=== PATIENT | male | born 1960 | race Caucasian/White ===

== ENCOUNTER 2016-07-17 15:01 | Inpatient (IN) | payer OTHER ==
[2016-07-17] VITALS (13 sets, daily range): BP systolic 66–98; BP diastolic 46–66
[~2016-07-17] VITALS: Ht 91.4 cm; Wt 55.8 kg
--- NOTE | ~2016-07-17 | S ---
[facility] [place] [address] SURGICAL PATH RPT PROCEDURE Name: VARSHA AUGUSTIN Room #: 436-P ADM IN M.R.#: [id number] Admission: 07/17/16 Date of : 62 Discharge: Report #: [id number] Path Case #: [id number] PATHOLOGY REPORT COLLECTION DATE: 07/18/2016 RECEIVED DATE: 07/18/2016 SUBMITTING PHYS: Dr. Marina Muniz OTHER PHYS: Dr. Ra Lara SPECIMEN(S) RECEIVED: A.Sacral tissue * * * * * * * * * * * * FINAL DIAGNOSIS: Subcutaneous soft tissue "sacral tissue": - Extensive necrosis with acute inflammation and with fat necrosis. (SHA:all; d/t: 07/22/2016) PATHOLOGIST: Konstantin Ohcoa M.D. REPORT ELECTRONICALLY SIGNED BY: Konstantin Ochoa M.D. DATE/TIME: 07/22/2016 14:23 * * * * * * * * * * * * GROSS PATHOLOGY: The specimen is received in formalin, labeled "Varsha Augustin and sacral tissue." Received is a 7.4 x 5.5 x 1.3 cm aggregate of blood-tinged, vargas-brown, and necrotic appearing soft tissue with overlying skin. The specimen is serially sectioned and representatively submitted in cassette A1. (TTL; 07/18/2016) CLINICAL HISTORY: Sacral wound INITIAL CPT CODE(S): A; 01601 Professional services performed by [facility] at [facility] [address] [place] [address] Technical services performed by [facility] at [address] [place] [address], [address] [address]. [facility] [address] [place] [address] SURGICAL PATH RPT PROCEDURE Name: VARSHA AUGUSTIN Room #: 436-P ADM IN M.R.#: [id number] Admission: 07/17/16 Date of : 62 Discharge: Report #: [id number] Path Case #: [id number] [facility] [address] [place] [id number] PHONE: [phone] DIRECTOR: Cristopher Reese M.D. * * * END OF REPORT * * *
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
--- NOTE | ~2016-07-17 | HC ---
[facility] [address] [address] CONSULTATION Name: VARSHA AUGUSTIN Room #: 251-P [facility] IN .R.#: [id number] Admission: 07/17/16 Attend Phys: Ra Coppola MD Discharge: Date of : 62 Report #: [id number] THIS REPORT FOR: //name// CC: Rudy Coppola DATE OF SERVICE: 07/17/2016 REFERRING PROVIDER: Jc Douglas M.D. REASON FOR CONSULTATION: Sacral decubitus wound with sepsis. HISTORY OF PRESENT ILLNESS: The patient is a 55-year-old male who is known to me as he underwent a debridement of a large stage IV sacral gluteal wound in mid May. The patient does have a history of hemipelvectomy and has been in and out of acute care and long-term acute care facilities for wound care since that time. Most recently, at the beginning of May, the patient was admitted to [facility] for sepsis secondary to his large stage IV sacral decubitus wound, which ultimately improved with repeat serial debridements. The patient discharged home a couple of weeks ago and while at home, has been using [id number]-[id number] honey on his wounds because he heard that that could be beneficial to wound healing. In addition, the patient continues tobacco use and refuses repositioning due to noncompliance. Nonetheless, the patient has been admitted to the Intensive Care Unit with findings concerning for sepsis as he is currently on multiple pressor agents for blood pressure management. As the patient does have recurrent necrosis to his wound, I have been asked to evaluate for repeat debridement. The patient did receive a CT scan of the abdomen and pelvis, which showed findings of pelvic edema concerning for phlegmonous change in addition to chronic osteomyelitis. The patient is awake, alert and conversive at this time, however. PAST MEDICAL HISTORY: Paraplegia, bilateral hemipelvectomy, bipolar disorder, GERD, hypertension, osteoarthritis and chronic osteomyelitis. MEDICATIONS: Are numerous and consist of albuterol, ipratropium, dobutamine, epinephrine, folic acid, [place], insulin, lactobacillus, MS Contin, norepinephrine, Protonix, vancomycin, Zofran and Zosyn. ALLERGIES: To PETROLEUM JELLY. FAMILY HISTORY: Reviewed and noncontributory. SOCIAL HISTORY: Positive for tobacco and occasional alcohol. He states negative for illicit drugs, although his drug screen came back positive for opiates and marijuana. [facility] [address] [place] [address] CONSULTATION Name: VARSHA AUGUSTIN Room #: 251-P [facility] IN .R.#: [id number] Admission: 07/17/16 Attend Phys: Ra Coppola MD Discharge: Date of : 62 Report #: [id number] REVIEW OF SYSTEMS: GENERAL: The patient denies nocturnal fevers or chills. HEENT: No change in vision, change in hearing. NECK: No swelling or difficulty swallowing. HEART: No chest pain, palpitations. LUNGS: No cough or shortness of breath. ABDOMEN: No nausea, no vomiting. GENITOURINARY: No dysuria or hematuria. ENDOCRINE: No polyuria, polydipsia. HEMATOLOGIC: No history of bleeding or easy bruising. EXTREMITIES: No issue with his upper extremities and he has bilateral hemipelvectomy. NEUROLOGIC: No history of syncope or near syncopal episodes. SKIN AND INTEGUMENT: History of a sacral gluteal decubitus wounds that are longstanding. PSYCHIATRIC: No history of anxiety, but he does have a history of bipolar disorder. PHYSICAL EXAMINATION: VITAL SIGNS: Temperature 96.7, pulse 106, respirations 14, blood pressure 93/62 on pressors. GENERAL: Alert, in no acute distress. HEENT: Normocephalic, atraumatic. Pupils equal, round, reactive to light. NECK: Supple without lymphadenopathy. Trachea midline. HEART: Tachycardic, but regular rhythm. RESPIRATORY: Lungs clear to auscultation bilaterally. ABDOMEN: Soft, nontender, nondistended. His colostomy is pink, patent and functional. The suprapubic catheter is in place and functional. GENITOURINARY: Normal external male genitalia. EXTREMITIES: No clubbing, cyanosis or edema in the upper extremities. He has no lower extremities. NEUROLOGIC: Cranial nerves 2-12 are grossly intact. PSYCHIATRIC: Normal mood and affect. SKIN AND INTEGUMENT: Entire bilateral gluteal, sacral and ischial regions showed overt necrotic tissue with slough and palpable bone throughout a bed of granulation tissue. LABORATORY AND X-RAY DATA: CBC showed a white blood cell count of 16.1 thousand, hemoglobin 8.2, platelets 539,000. He has a left shift of 78% neutrophils. Creatinine 0.8, albumin 1.0. Lactate 1.6. Urinalysis shows pyuria consistent with chronic suprapubic catheter. Chest x-ray shows no acute cardiopulmonary process. CT scan of the abdomen and pelvis as per HPI shows chronic osteomyelitis as well as phlegmonous change nearing the left side of the pelvis. INR is 1.5. ASSESSMENT AND PLAN: A 55-year-old male with a longstanding history [address] [place] [address] CONSULTATION Name: VARSHA AUGUSTIN Room #: 251-P [facility] IN .R.#: [id number] Admission: 07/17/16 Attend Phys: Ra Coppola MD Discharge: Date of : 62 Report #: [id number] of severe stage IV sacral bilateral gluteal and ischial decubitus wounds with necrosis. The patient is currently septic and on pressors and antibiotics; however is awake and mentating without issue. After evaluating the patient's wound while there is necrosis, I do not suspect that this is the source of his bacteremia as the gram stain on his blood culture has returned positive gram negative rods. The patient may be developing a pelvic abscess likely due to his chronic osteomyelitis and translocation of bacteria into the pelvic soft tissues, but in addition, he has an indwelling port that may be contributing to line sepsis. Nonetheless, at this time, the patient is being managed with antibiotic therapy per the direction of Dr. Douglas with the Infectious Disease Service and is being supported by the critical care service as well. We will proceed to the operating room for repeat debridement of his wounds at this time and will likely repeat a CT scan in 3 days' time to see if the phlegmonous change in the pelvis has coalesced into any drainable fluid collection for Interventional Radiology to assist. I sincerely appreciate this consult. I will follow along closely and leave any further recommendations in the patient's chart as appropriate. <ELECTRONICALLY SIGNED> By: Marina Muniz MD, FACS 07/19/16 1714 [id number] [id number] Marina Muniz MD, FACS /nt
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
--- NOTE | ~2016-07-17 | S ---
[facility] [place] [address] SURGICAL PATH RPT PROCEDURE Name: VARSHA AUGUSTIN Room #: 436-P ADM IN M.R.#: [id number] Admission: 07/17/16 Date of : 62 Discharge: Report #: [id number] Path Case #: [id number] PATHOLOGY REPORT COLLECTION DATE: 07/23/2016 RECEIVED DATE: 07/24/2016 SUBMITTING PHYS: Dr. Marina Muniz OTHER PHYS: Dr. Rudy Coppola SPECIMEN(S) RECEIVED: A.Sacral tissue * * * * * * * * * * * * FINAL DIAGNOSIS: Sacral tissue, debridement: - Marked acute inflammation associated with abscess formation extending into underlying subcutaneous tissue consistent with wound. (IUV:all; d/t: 07/25/2016) PATHOLOGIST: Melany Hardin M.D. REPORT ELECTRONICALLY SIGNED BY: Melany Hardin M.D. DATE/TIME: 07/25/2016 16:42 * * * * * * * * * * * * GROSS PATHOLOGY: The specimen is received in formalin, labeled "Varsha Augustin and sacral tissue." Received is a 10.3 x 4.7 x 1.3 cm aggregate of vargas-brown, rubbery, irregular, and necrotic-appearing soft tissue. The specimen is serially sectioned and representatively submitted in cassette A1. (TTL; 07/24/2016) CLINICAL HISTORY: Sacral wound INITIAL CPT CODE(S): A; 40709 Professional services performed by [facility] at [facility] [address] [place] [address] Technical services performed by [facility] at [address] [place] [address]. [facility] [address] [place] [address] SURGICAL PATH RPT PROCEDURE Name: VARSHA AUGUSTIN Room #: 436-P ADM IN M.R.#: [id number] Admission: 07/17/16 Date of : 62 Discharge: Report #: [id number] Path Case #: [id number] [address] PHONE: [phone] DIRECTOR: Cristopher Reese M.D. * * * END OF REPORT * * *
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
[~2016-07-17 15:01] MED LIST: ALUM-MAG HYDRO360 ML PO; BOOST PLUS237 ML PO; CALCIUM 500 +1 EAC5 PO; FOLIC ACID1 MG PO; HYDROCODONE-AP1 EAC6 PO; MELATONIN3 M1 PO; MEROPENEM-500 MG/50 IVPB; PRENATAL VITAM1 EAC2 PO; PROBIOTIC1 EAC1 PO; PROTONIX40 M1 PO; TYLENOL325 MG PO; VANCOMYCIN750 MG/150 IV; [UNRECOGNIZED DRUG - OTHER] PO
[2016-07-17] MEDS ORDERED: MS CONTIN15 MG PO (15:41)
[2016-07-17 16:06] LABS: ABSOLUTE NEUTROPHILS 12.6 thou/uL (1.4-8.2); BASOPHILS 0.5 % (0.0-2.0); EOSINOPHILS 0.8 % (0.0-3.0); HEMATOCRIT 25.4 % (42.0-52.0); HEMOGLOBIN 8.2 gm/dL (14.0-18.0); LYMPHOCYTES 11.1 % (24.0-44.0); MCHC 32.1 % (28.0-37.0); MCV 74.7 fL (80.0-100.0); MONOCYTES 9.4 % (1.0-8.0); PLATELET COUNT 539 thou/uL (150-400); POLYS 78.2 % (36.0-66.0); RDW 18.4 % (10.5-14.5); WBC 16.1 thou/uL (4.0-11.0)
[2016-07-17 16:08] LABS: MANUAL DIFF NO
[2016-07-17 16:15] LABS: CALCIUM 8.3 mg/dL (8.5-10.1); CREATININE 0.8 mg/dL (0.6-1.3); POTASSIUM 4.2 mmol/L (3.5-5.1)
[2016-07-17 17:37] LABS: URINE BILIRUBIN NEGATIVE (Negative); URINE BLOOD TRACE (Negative); URINE COLOR YELLOW; URINE GLUCOSE-RANDOM* NEGATIVE (Negative); URINE KETONES NEGATIVE (Negative); URINE LEUKOCYTES-REFLEX 2+ (Negative); URINE PROTEIN (DIPSTICK) TRACE (Negative); URINE SPECIFIC GRAVITY 1.025 (1.003-1.035); URINE UROBILINOGEN 0.2 E.U./dl (0.2-1.0)
[2016-07-17 17:48] LABS: CASTS None Seen /LPF (None Seen); CRYSTALS None Seen /LPF (None Seen); SQUAMOUS 0-3 Few /LPF (0-3); URINE RBC None Seen /HPF (0-2); URINE WBC-REFLEX >25 Many /HPF (0-5); YEAST-REFLEX Present (None Seen)
[2016-07-17 20:08] LABS: ABG SAMPLE TYPE ARTERIAL; BE(vivo) -3.1 mmol/L (-2 to +3); LACTATE 1.77 mmol/L (0.5-2.0); O2(CT) 12.6 mL/dL (15.0-23.0); O2Hb 95.7 % (92.0-98.0); PCO2 28.8 mmHg (35.0-45.0); PO2 87.9 mmHg (80.0-100.0); sO2 97.2 % (92.0-98.0); tCO2 20.9 mmol/L (24.0-30.0)
[2016-07-17 20:09] LABS: ABG COMMENT ROOM AIR; STICK SITE R.RADIAL
[2016-07-17 20:11] LABS: ABG COMMENT VBG #1; ABG SAMPLE TYPE VENOUS; BE(vivo) -2.8 mmol/L (-2 to +3); HCO3 21.7 mmol/L (22.0-26.0); LACTATE 1.74 mmol/L (0.5-2.0); O2(CT) 6.7 mL/dL (15.0-23.0); O2Hb VENOUS 53.4 (65.0-85.0); PCO2 VENOUS 36.4 mmHg (41.0-51.0); PO2 VENOUS 30.7 mmHg (35.0-45.0); STICK SITE LINE; sO2 VENOUS 58.8 % (65.0-85.0); tCO2 22.9 mmol/L (24.0-30.0)
[2016-07-17 20:54] LABS: CALCIUM 7.5 mg/dL (8.5-10.1); CREATININE 0.9 mg/dL (0.6-1.3); POTASSIUM 3.8 mmol/L (3.5-5.1)
[2016-07-17 20:58] LABS: APTT 30.8 Seconds (24.5-32.8); INR 1.5; PROTIME 15.8 Seconds (9.3-11.4)
[2016-07-17 21:01] LABS: TOTAL BILIRUBIN 0.2 mg/dL (<0.1-1.0)
[2016-07-17 21:03] LABS: FIBRINOGEN 844.2 mg/dL (210-360)
[2016-07-17 21:26] LABS: ABG SAMPLE TYPE VENOUS; BE(vivo) -4.9 mmol/L (-2 to +3); HCO3 19.7 mmol/L (22.0-26.0); LACTATE 1.76 mmol/L (0.5-2.0); O2(CT) 6.1 mL/dL (15.0-23.0); PCO2 VENOUS 34.3 mmHg (41.0-51.0); sO2 VENOUS 58.6 % (65.0-85.0); tCO2 20.7 mmol/L (24.0-30.0)
[2016-07-17 21:27] LABS: ABG COMMENT VBG #2; O2Hb VENOUS 49.9 (65.0-85.0); STICK SITE LINE
[2016-07-17 22:31] LABS: ABG SAMPLE TYPE VENOUS; BE(vivo) -3.6 mmol/L (-2 to +3); LACTATE 1.87 mmol/L (0.5-2.0); O2(CT) 6.6 mL/dL (15.0-23.0); O2Hb VENOUS 57.6 (65.0-85.0); PCO2 VENOUS 36.2 mmHg (41.0-51.0); PO2 VENOUS 32.8 mmHg (35.0-45.0); sO2 VENOUS 62.5 % (65.0-85.0); tCO2 22.1 mmol/L (24.0-30.0)
[2016-07-17 22:32] LABS: ABG COMMENT VBG #3; STICK SITE LINE
[2016-07-17 23:47] LABS: ABG SAMPLE TYPE VENOUS; BE(vivo) -5.2 mmol/L (-2 to +3); HCO3 19.7 mmol/L (22.0-26.0); LACTATE 2.47 mmol/L (0.5-2.0); O2(CT) 7.5 mL/dL (15.0-23.0); O2Hb VENOUS 60.9 (65.0-85.0); PCO2 VENOUS 35.9 mmHg (41.0-51.0); PO2 VENOUS 36.2 mmHg (35.0-45.0); sO2 VENOUS 67.3 % (65.0-85.0); tCO2 20.8 mmol/L (24.0-30.0)
[2016-07-17 23:48] LABS: ABG COMMENT VBG #4; STICK SITE LINE
[2016-07-18] VITALS (99 sets, daily range): BP systolic 66–147; BP diastolic 21–89
[2016-07-18 01:08] LABS: ABG COMMENT VBG #5; ABG SAMPLE TYPE VENOUS; BE(vivo) -4.5 mmol/L (-2 to +3); HCO3 20.1 mmol/L (22.0-26.0); LACTATE 1.42 mmol/L (0.5-2.0); O2(CT) 7.2 mL/dL (15.0-23.0); O2Hb VENOUS 58.1 (65.0-85.0); PCO2 VENOUS 35.1 mmHg (41.0-51.0); PO2 VENOUS 33.8 mmHg (35.0-45.0); STICK SITE LINE; sO2 VENOUS 64.1 % (65.0-85.0); tCO2 21.2 mmol/L (24.0-30.0)
[2016-07-18 01:49] LABS: CALCIUM 7.6 mg/dL (8.5-10.1); CREATININE 0.9 mg/dL (0.6-1.3); POTASSIUM 4.2 mmol/L (3.5-5.1)
[2016-07-18 01:57] LABS: APTT 28.4 Seconds (24.5-32.8); INR 1.4
[2016-07-18 02:27] LABS: ABG SAMPLE TYPE VENOUS; BE(vivo) -4.5 mmol/L (-2 to +3); HCO3 20.3 mmol/L (22.0-26.0); LACTATE 1.42 mmol/L (0.5-2.0); O2(CT) 8.6 mL/dL (15.0-23.0); O2Hb VENOUS 68.3 (65.0-85.0); PCO2 VENOUS 36.4 mmHg (41.0-51.0); PO2 VENOUS 38.9 mmHg (35.0-45.0); STICK SITE LINE; sO2 VENOUS 72.1 % (65.0-85.0); tCO2 21.5 mmol/L (24.0-30.0)
[2016-07-18 02:28] LABS: ABG COMMENT VBG#6
[2016-07-18 04:53] LABS: ABSOLUTE NEUTROPHILS 11.5 thou/uL (1.4-8.2); BASOPHILS 0.4 % (0.0-2.0); EOSINOPHILS 0.4 % (0.0-3.0); HEMATOCRIT 26.7 % (42.0-52.0); HEMOGLOBIN 8.5 gm/dL (14.0-18.0); LYMPHOCYTES 7.5 % (24.0-44.0); MCH 24.8 pg (26.0-34.0); MCV 77.6 fL (80.0-100.0); POLYS 84.7 % (36.0-66.0); RBC 3.44 mil/uL (4.50-6.00); RDW 18.1 % (10.5-14.5); WBC 13.6 thou/uL (4.0-11.0)
[2016-07-18 04:55] LABS: CALCIUM 8.2 mg/dL (8.5-10.1); CREATININE 0.9 mg/dL (0.6-1.3); MAGNESIUM 1.8 mg/dL (1.8-2.4); POTASSIUM 3.9 mmol/L (3.5-5.1)
[2016-07-18 04:55] LABS: HEMATOCRIT 24.3 % (42.0-52.0); HEMOGLOBIN 7.7 gm/dL (14.0-18.0); MCH 25.1 pg (26.0-34.0); MCV 78.9 fL (80.0-100.0); RBC 3.08 mil/uL (4.50-6.00); WBC 9.8 thou/uL (4.0-11.0)
[2016-07-18 04:56] LABS: MCHC 31.8 % (28.0-37.0); RDW 18.1 % (10.5-14.5)
[2016-07-18 04:59] LABS: PLATELET COUNT 493 thou/uL (150-400)
[2016-07-18 05:00] LABS: MANUAL DIFF NO
[2016-07-18 05:14] LABS: AMP/METHAMP Negative (Negative); BARBITURATES Negative (Negative); BENZODIAZEPINES Negative (Negative); COCAINE Negative (Negative); METHADONE Negative (Negative); OPIATES POSITIVE (Negative); PCP Negative (Negative); THC POSITIVE (Negative)
[2016-07-18 07:10] LABS: TSH 1.07 uIU/mL (0.450-4.500)
[2016-07-18 09:34] LABS: ABG SAMPLE TYPE VENOUS; BE(vivo) -3.4 mmol/L (-2 to +3); HCO3 21.1 mmol/L (22.0-26.0); LACTATE 2.23 mmol/L (0.5-2.0); O2Hb VENOUS 64.3 (65.0-85.0); PCO2 VENOUS 35.7 mmHg (41.0-51.0); PO2 VENOUS 36.1 mmHg (35.0-45.0); tCO2 22.2 mmol/L (24.0-30.0)
[2016-07-18 09:35] LABS: STICK SITE LINE
[2016-07-18 12:21] LABS: HEMATOCRIT 27.8 % (42.0-52.0); HEMOGLOBIN 8.9 gm/dL (14.0-18.0); MCH 25.1 pg (26.0-34.0); MCV 78.5 fL (80.0-100.0); RBC 3.54 mil/uL (4.50-6.00); WBC 9.1 thou/uL (4.0-11.0)
[2016-07-18 12:24] LABS: CALCIUM 8.5 mg/dL (8.5-10.1); CREATININE 0.9 mg/dL (0.6-1.3); POTASSIUM 3.9 mmol/L (3.5-5.1)
[2016-07-18 12:38] LABS: APTT 30.8 Seconds (24.5-32.8); INR 1.4; PROTIME 14.1 Seconds (9.3-11.4)
[2016-07-18 12:43] LABS: FIBRINOGEN 844.2 mg/dL (210-360)
[2016-07-18 13:11] LABS: % SATURATION 9 % (15-55); IRON 10 ug/dL (38-169); TIBC 110 ug/dL (250-450); UIBC 100 ug/dL (111-343)
[2016-07-18 17:00] LABS: ABG SAMPLE TYPE VENOUS; BE(vivo) -4.6 mmol/L (-2 to +3); HCO3 18.7 mmol/L (22.0-26.0); LACTATE 1.13 mmol/L (0.5-2.0); O2(CT) 8.5 mL/dL (15.0-23.0); O2Hb VENOUS 69.2 (65.0-85.0); PCO2 VENOUS 27.9 mmHg (41.0-51.0); PO2 VENOUS 35.7 mmHg (35.0-45.0); sO2 VENOUS 72.1 % (65.0-85.0); tCO2 19.5 mmol/L (24.0-30.0)
[2016-07-19] VITALS (94 sets, daily range): BP systolic 86–158; BP diastolic 45–110
[2016-07-19 06:32] LABS: CALCIUM 8.4 mg/dL (8.5-10.1); CREATININE 0.7 mg/dL (0.6-1.3); MAGNESIUM 1.7 mg/dL (1.8-2.4); POTASSIUM 3.7 mmol/L (3.5-5.1); TOTAL BILIRUBIN 0.2 mg/dL (<0.1-1.0); TOTAL PROTEIN 6.3 g/dL (6.4-8.2)
[2016-07-19 07:11] LABS: ABSOLUTE NEUTROPHILS 6.9 thou/uL (1.4-8.2); EOSINOPHILS 3.1 % (0.0-3.0); HEMATOCRIT 25.7 % (42.0-52.0); HEMOGLOBIN 8.5 gm/dL (14.0-18.0); LYMPHOCYTES 11.4 % (24.0-44.0); MCH 25.3 pg (26.0-34.0); MCHC 32.9 % (28.0-37.0); MCV 76.7 fL (80.0-100.0); MONOCYTES 7.5 % (1.0-8.0); PLATELET COUNT 490 thou/uL (150-400); RBC 3.35 mil/uL (4.50-6.00); RDW 18.6 % (10.5-14.5)
[2016-07-19 07:27] LABS: MANUAL DIFF NO
[2016-07-20] VITALS (31 sets, daily range): BP systolic 85–142; BP diastolic 53–92
[2016-07-20 04:24] LABS: ABSOLUTE NEUTROPHILS 4.9 thou/uL (1.4-8.2); BASOPHILS 0.8 % (0.0-2.0); EOSINOPHILS 4.1 % (0.0-3.0); HEMATOCRIT 25.8 % (42.0-52.0); HEMOGLOBIN 8.3 gm/dL (14.0-18.0); LYMPHOCYTES 17.7 % (24.0-44.0); MCHC 32.3 % (28.0-37.0); MCV 77.3 fL (80.0-100.0); MONOCYTES 6.4 % (1.0-8.0); PLATELET COUNT 469 thou/uL (150-400); RBC 3.34 mil/uL (4.50-6.00); RDW 18.9 % (10.5-14.5); WBC 6.9 thou/uL (4.0-11.0)
[2016-07-20 05:04] LABS: MANUAL DIFF NO
[2016-07-20 06:14] LABS: CALCIUM 7.9 mg/dL (8.5-10.1); CREATININE 0.8 mg/dL (0.6-1.3); POTASSIUM 3.6 mmol/L (3.5-5.1)
[2016-07-21] VITALS (16 sets, daily range): BP systolic 93–135; BP diastolic 51–91
[2016-07-22 05:30] VITALS: BP 101/60
[2016-07-22 08:00] VITALS: BP 100/68
[2016-07-22 12:00] VITALS: BP 105/65
[2016-07-22 16:00] VITALS: BP 93/55
[2016-07-22 21:10] VITALS: BP 96/65
[2016-07-23 05:20] VITALS: BP 111/66
[2016-07-23 06:06] LABS: HEMATOCRIT 26.8 % (42.0-52.0); HEMOGLOBIN 8.4 gm/dL (14.0-18.0); MCH 24.4 pg (26.0-34.0); MCHC 31.2 % (28.0-37.0); MCV 78.1 fL (80.0-100.0); RBC 3.42 mil/uL (4.50-6.00); RDW 19.1 % (10.5-14.5); WBC 9.7 thou/uL (4.0-11.0)
[2016-07-23 06:15] LABS: CALCIUM 8.4 mg/dL (8.5-10.1); CREATININE 0.9 mg/dL (0.6-1.3); POTASSIUM 4.1 mmol/L (3.5-5.1)
[2016-07-23 08:00] VITALS: BP 114/58
[2016-07-23 12:37] VITALS: BP 88/62
[2016-07-23 19:28] VITALS: BP 103/69
[2016-07-23 20:35] VITALS: BP 117/70
[2016-07-24 00:28] VITALS: BP 116/80
[2016-07-24 05:43] VITALS: BP 113/66
[2016-07-24 08:04] VITALS: BP 107/71
[2016-07-24 11:13] VITALS: BP 114/64
[2016-07-24 16:01] VITALS: BP 138/83
[2016-07-24 19:22] VITALS: BP 109/56
[2016-07-25 06:02] VITALS: BP 104/69
[2016-07-25 12:16] VITALS: BP 112/67
[2016-07-25 14:30] VITALS: BP 112/67
[2016-07-25 14:40] VITALS: BP 112/67
[2016-07-25] MEDS ORDERED: CEFDINIR300 MG PO (15:10)
[2016-07-25] MEDS ORDERED: BACTRIM DS TAB1 EACH PO (15:12)
[2016-07-25] MEDS ORDERED: FLAGYL500 MG PO (15:12)
== END 2016-07-25 17:36 | disposition home health service (06) | DRG 853 ==
LOC: ER 15:01 → EROBS 17:07 → ICU 17:07 → 4S 07-21 14:59
PROVIDERS: Internal Medicine; Internal Medicine Geriatric Medicine; Internal Medicine Pulmonary Disease; Physician Assistant; Surgery
DX: R65.20 Severe sepsis without septic shock (principal); L89.894 Pressure ulcer of other site, stage 4; L89.324 Pressure ulcer of left buttock, stage 4; L89.314 Pressure ulcer of right buttock, stage 4; L89.154 Pressure ulcer of sacral region, stage 4; G82.20 Paraplegia, unspecified; M86.9 Osteomyelitis, unspecified; E87.1 Hypo-osmolality and hyponatremia; E87.0 Hyperosmolality and hypernatremia; N39.0 Urinary tract infection, site not specified; K21.9 Gastro-esophageal reflux disease without esophagitis; D64.9 Anemia, unspecified; F31.9 Bipolar disorder, unspecified; M19.90 Unspecified osteoarthritis, unspecified site; D47.3 Essential (hemorrhagic) thrombocythemia; R73.9 Hyperglycemia, unspecified; G89.29 Other chronic pain; J44.9 Chronic obstructive pulmonary disease, unspecified; B96.20 Unspecified Escherichia coli [E. coli] as the cause of diseases classified elsewhere; Z98.890 Other specified postprocedural states; Z88.8 Allergy status to other drugs, medicaments and biological substances; Z93.3 Colostomy status; Z79.899 Other long term (current) drug therapy
CPT/HCPCS: 10078; 10100; 27000; 50010; 50101; 50386; 50403; 53353; 53354; 54109; 56524; 62110; 62900; 70005; 85076

== ENCOUNTER → 2016-08-01 | Outpatient (CLI) | payer OTHER ==
[~2016-08-01] MED LIST changes: +BACTRIM DS TAB1 EACH PO; +CEFDINIR300 MG PO; +FLAGYL500 MG PO; +MS CONTIN15 MG PO
== END ==
LOC: HYPER 07:59
DX: L89.324 Pressure ulcer of left buttock, stage 4 (principal); L89.314 Pressure ulcer of right buttock, stage 4; L89.154 Pressure ulcer of sacral region, stage 4; L89.143 Pressure ulcer of left lower back, stage 3; F31.9 Bipolar disorder, unspecified; K21.9 Gastro-esophageal reflux disease without esophagitis; I10 Essential (primary) hypertension; M86.8X9 Other osteomyelitis, unspecified sites; G82.20 Paraplegia, unspecified; F17.210 Nicotine dependence, cigarettes, uncomplicated

== ENCOUNTER → 2016-10-08 | Outpatient (CLI) | payer OTHER | LOC: HYPER 09-26 08:11 | DX: L89.324 Pressure ulcer of left buttock, stage 4 (principal); L89.314 Pressure ulcer of right buttock, stage 4; L89.154 Pressure ulcer of sacral region, stage 4; L89.143 Pressure ulcer of left lower back, stage 3; K21.9 Gastro-esophageal reflux disease without esophagitis; I10 Essential (primary) hypertension; M86.8X8 Other osteomyelitis, other site; G82.21 Paraplegia, complete; F17.210 Nicotine dependence, cigarettes, uncomplicated ==

== ENCOUNTER → 2016-12-03 | Outpatient (CLI) | payer OTHER | LOC: HYPER 07:14 | DX: L89.154 Pressure ulcer of sacral region, stage 4 (principal); L89.324 Pressure ulcer of left buttock, stage 4; L89.314 Pressure ulcer of right buttock, stage 4; L89.893 Pressure ulcer of other site, stage 3; K21.9 Gastro-esophageal reflux disease without esophagitis; I10 Essential (primary) hypertension; M86.9 Osteomyelitis, unspecified; G82.20 Paraplegia, unspecified; F17.200 Nicotine dependence, unspecified, uncomplicated; F31.9 Bipolar disorder, unspecified; Z89.612 Acquired absence of left leg above knee; Z89.611 Acquired absence of right leg above knee ==

== ENCOUNTER 2017-01-13 13:00 | Inpatient (IN) | payer OTHER ==
[~2017-01-13] VITALS: Ht 91.4 cm; Wt 52.2 kg
--- NOTE | ~2017-01-13 | S ---
[facility] [place] [address] SURGICAL PATH RPT PROCEDURE Name: VARSHA AUGUSTIN Room #: 419-P DIS IN M.R.#: [id number] Admission: 01/13/17 Date of : 62 Discharge: 01/17/17 Report #: [id number] Path Case #: [id number] PATHOLOGY REPORT COLLECTION DATE: 01/15/2017 RECEIVED DATE: 01/15/2017 SUBMITTING PHYS: Dr. Pam Forrester OTHER PHYS: Dr. Ra Lara SPECIMEN(S) RECEIVED: A.Bx of duodenum B.Gastric * * * * * * * * * * * * FINAL DIAGNOSIS: A. Small bowel, duodenum, endoscopic biopsy: - No diagnostic abnormalities present. B. Gastric mucosa, gastric, endoscopic biopsy: - Mild reactive gastropathy with focal chronic gastritis. - Negative for intestinal metaplasia or atrophy. - Negative for Helicobacter pylori. COMMENT: Helicobacter pylori immunohistochemical stain performed on block B1 negative. (IUV:mml; d/t: 01/19/2017) PATHOLOGIST: Melany Hardin M.D. REPORT ELECTRONICALLY SIGNED BY: Melany Hardin M.D. DATE/TIME: 01/19/2017 16:02 * * * * * * * * * * * * GROSS PATHOLOGY: A. Received in formalin labeled "Varsha Augustin, BX of duodenum," are 2 segments of vargas soft tissue measuring 0.8 x 0.2 x 0.2 cm in aggregate dimensions and ranging from 0.3 to 0.5 cm in maximum dimension. The specimen is submitted entirely in cassette A1. B. Received in formalin labeled "Varsha Augustin, gastric BX," is a segment of vargas soft tissue measuring 0.5 x 0.3 x 0.2 cm in maximum dimension. The specimen is submitted entirely in cassette B1. (PANCHITO; 01/16/2017) [address] [address] SURGICAL PATH RPT PROCEDURE Name: VARSHA AUGUSTIN Room #: 419-P DIS IN M.R.#: [id number] Admission: 01/13/17 Date of : 62 Discharge: 01/17/17 Report #: [id number] Path Case #: [id number] CLINICAL HISTORY: Anemia INITIAL CPT CODE(S): A; 78517 B; 16110, 44115 Professional services performed by [facility] at [address], [place] [address] Technical services performed by [facility] at [address] [place] [address], [facility] [address] [place] [address]. [facility] [address] [place] [address] PHONE: [phone] DIRECTOR: Cristopher Reese M.D. * * * END OF REPORT * * *
--- NOTE | ~2017-01-13 | EKG ---
[address] [employer] [place] [address] ELECTROCARDIOGRAM REPORT Name: VARSHA AUGUSTIN Room #: 419-P ADM IN M.R.#: [id number] Admission: 01/13/17 Attend Phys: Ra Coppola MD Discharge: Date of : 62 Report #: [id number] THIS REPORT FOR: //name// [facility] Test Date: 2017-01-14 Test Time: 12:30:19 Pat Name: VARSHA AUGUSTIN Department: Room: 419 P Gender: M Controlled Area Checker: Sunil NORIEGA : 1960 Requested By: Ra Coppola Order Number: [id number] MD: Clay Walton Measurements Intervals [place] Rate: 101 P: 76 IA: 153 QRS: 39 QRSD: 99 T: 59 QT: 398 QTc: 516 Interpretive Statements Sinus tachycardia Low voltage, precordial leads Nonspecific ST and T wave abnormality Prolonged QT interval Compared to ECG 05/05/1998 19:55:00 Low QRS voltage now present T-wave abnormality now present Prolonged QT interval now present Electronically Signed On 01-15-2017 8:21:14 CDT by Clay Walton [email or web address] <ELECTRONICALLY SIGNED> By: Clay Walton MD, [facility] 01/15/17 0821 1230 1230 Clay Walton MD, [facility] /EPI
[2017-01-13 13:00] VITALS: BP 107/61
[2017-01-13 14:56] LABS: ABSOLUTE NEUTROPHILS 9.1 thou/uL (1.4-8.2); BASOPHILS 1.5 % (0.0-2.0); EOSINOPHILS 1.7 % (0.0-3.0); HEMATOCRIT 24.5 % (42.0-52.0); HEMOGLOBIN 7.6 gm/dL (14.0-18.0); LYMPHOCYTES 14.5 % (24.0-44.0); MCHC 31.1 g/dL (28.0-37.0); MCV 70.8 fL (80.0-100.0); MONOCYTES 7.4 % (1.0-8.0); PLATELET COUNT 728 thou/uL (150-400); POLYS 74.9 % (36.0-66.0); RBC 3.47 mil/uL (4.50-6.00); RDW 16.4 % (10.5-14.5); WBC 12.2 thou/uL (4.0-11.0)
[2017-01-13 15:05] LABS: CALCIUM 8.7 mg/dL (8.5-10.1); CREATININE 0.9 mg/dL (0.7-1.3); MANUAL DIFF NO; POTASSIUM 3.7 mmol/L (3.5-5.1)
[2017-01-13 15:09] LABS: ALBUMIN 1.6 g/dL (3.4-5.0); TOTAL BILIRUBIN 0.2 mg/dL (<0.1-1.0); TOTAL PROTEIN 7.5 g/dL (6.4-8.2)
[2017-01-13] MEDS ORDERED: HYDROCODONE-APA1 TA1 PO (15:28)
[2017-01-13 18:15] LABS: URINE BILIRUBIN NEGATIVE (Negative); URINE BLOOD 1+ (Negative); URINE COLOR YELLOW; URINE GLUCOSE-RANDOM* NEGATIVE (Negative); URINE KETONES NEGATIVE (Negative); URINE LEUKOCYTES-REFLEX TRACE (Negative); URINE PROTEIN (DIPSTICK) 1+ (Negative); URINE SPECIFIC GRAVITY <= 1.005 (1.003-1.035); URINE UROBILINOGEN 0.2 E.U./dl (0.2-1.0)
[2017-01-13 18:26] LABS: AMORPHOUS PHOSPHATES Moderate /LPF (None Seen); CASTS None Seen /LPF (None Seen); URINE WBC-REFLEX 6-15 Few /HPF (0-5)
[2017-01-13 18:27] LABS: URINE RBC 3-10 Few /HPF (0-2)
[2017-01-13] MEDS ORDERED: PHENERGAN 25 MG25 M1 PO (18:28)
[2017-01-13 18:29] LABS: SQUAMOUS None Seen /LPF (0-3)
[2017-01-13] MEDS ORDERED: MACROBID 100 M100 M1 PO (18:30)
[2017-01-13] MEDS ORDERED: CEFDINIR300 MG PO (18:34)
[2017-01-13 20:15] VITALS: BP 90/57; BP 95/62
[2017-01-13] MEDS ORDERED: EPIPEN 2-P0.3 MG/0.3 IM (21:30)
[2017-01-13] MEDS ORDERED: HYDROCODON-ACE1 EAC7 PO (21:30)
[2017-01-13] MEDS ORDERED: ERYTHROMYCIN250 MG PO (21:32)
[2017-01-13] MEDS ORDERED: MEGACE ES625 MG/5 M PO (21:39)
[2017-01-13] MEDS ORDERED: NYSTATIN 1100000 U/M SW&SWALLOW (21:40)
[2017-01-13 23:00] VITALS: BP 96/55
[2017-01-13 23:45] VITALS: BP 153/61
[2017-01-14] VITALS (7 sets, daily range): BP systolic 80–104; BP diastolic 49–70
[2017-01-14 12:03] LABS: HEMATOCRIT 20.7 % (42.0-52.0); HEMOGLOBIN 6.6 gm/dL (14.0-18.0)
[2017-01-15 04:20] VITALS: BP 107/65
[2017-01-15 05:25] LABS: ABSOLUTE NEUTROPHILS 5.4 thou/uL (1.4-8.2); BASOPHILS 0.8 % (0.0-2.0); EOSINOPHILS 4.8 % (0.0-3.0); HEMATOCRIT 28.4 % (42.0-52.0); LYMPHOCYTES 20.2 % (24.0-44.0); MCH 23.7 pg (26.0-34.0); MCHC 31.9 g/dL (28.0-37.0); MCV 74.2 fL (80.0-100.0); MONOCYTES 8.3 % (1.0-8.0); POLYS 65.9 % (36.0-66.0); RBC 3.83 mil/uL (4.50-6.00); RDW 17.9 % (10.5-14.5); WBC 8.3 thou/uL (4.0-11.0)
[2017-01-15 05:26] LABS: HEMOGLOBIN 9.1 gm/dL (14.0-18.0); PLATELET COUNT 528 thou/uL (150-400)
[2017-01-15 05:28] LABS: MANUAL DIFF NO
[2017-01-15 05:44] LABS: ANION GAP 12 mmol/L (7-16); BUN 2 mg/dL (7-18); CALCIUM 7.8 mg/dL (8.5-10.1); CHLORIDE 111 mmol/L (98-107); CO2 19 mmol/L (21-32); CREATININE 0.8 mg/dL (0.7-1.3); GLUCOSE 97 mg/dL (74-106); MAGNESIUM 1.5 mg/dL (1.8-2.4); SODIUM 142 mmol/L (136-145); TROPONIN-I < 0.04 ng/mL (<0.04-0.07)
[2017-01-15 08:50] VITALS: BP 101/56
[2017-01-15 14:45] VITALS: BP 127/78
[2017-01-15 16:02] VITALS: BP 108/60
[2017-01-15 22:29] VITALS: BP 109/79
[2017-01-16 04:19] LABS: ABSOLUTE NEUTROPHILS 3.8 thou/uL (1.4-8.2); BASOPHILS 0.7 % (0.0-2.0); EOSINOPHILS 5.4 % (0.0-3.0); HEMATOCRIT 26.8 % (42.0-52.0); HEMOGLOBIN 8.6 gm/dL (14.0-18.0); LYMPHOCYTES 20.3 % (24.0-44.0); MCH 23.8 pg (26.0-34.0); MCHC 32.1 g/dL (28.0-37.0); MCV 74.3 fL (80.0-100.0); MONOCYTES 9.1 % (1.0-8.0); PLATELET COUNT 473 thou/uL (150-400); POLYS 64.5 % (36.0-66.0); RBC 3.61 mil/uL (4.50-6.00); RDW 17.5 % (10.5-14.5); WBC 5.9 thou/uL (4.0-11.0)
[2017-01-16 04:20] LABS: MANUAL DIFF NO
[2017-01-16 04:22] LABS: CALCIUM 7.9 mg/dL (8.5-10.1); CREATININE 0.7 mg/dL (0.7-1.3); MAGNESIUM 1.8 mg/dL (1.8-2.4); POTASSIUM 3.3 mmol/L (3.5-5.1)
[2017-01-16 04:41] VITALS: BP 109/71
[2017-01-16 07:34] VITALS: BP 101/61
[2017-01-16 08:50] LABS: ANISOCYTOSIS 1+; HYPOCHROMASIA 1+; MICROCYTES 1+
[2017-01-16 13:54] VITALS: BP 101/61
[2017-01-16 15:37] VITALS: BP 80/63
[2017-01-16 20:18] VITALS: BP 80/48
[2017-01-17 03:08] VITALS: BP 112/67
[2017-01-17 09:27] VITALS: BP 112/73
[2017-01-17] MEDS ORDERED: CEFUROXIME500 MG PO (10:48)
[2017-01-17] MEDS ORDERED: FLAGYL500 MG PO (10:48)
[2017-01-17] MEDS ORDERED: PROTONIX40 M1 PO (13:08)
[2017-01-17] MEDS ORDERED: CLOTRIMAZOLE10 MG PO (13:08)
[2017-01-17 16:01] LABS: HEMATOCRIT 27.6 % (42.0-52.0); HEMOGLOBIN 8.8 gm/dL (14.0-18.0); MCH 24.1 pg (26.0-34.0); MCV 75.2 fL (80.0-100.0); RBC 3.67 mil/uL (4.50-6.00); RDW 18.1 % (10.5-14.5); WBC 6.7 thou/uL (4.0-11.0)
[2017-01-17 16:09] LABS: CALCIUM 7.9 mg/dL (8.5-10.1); CREATININE 0.7 mg/dL (0.7-1.3); POTASSIUM 3.4 mmol/L (3.5-5.1)
[2017-01-17 16:13] VITALS: BP 101/61
== END 2017-01-17 19:30 | disposition home health service (06) | DRG 871 ==
LOC: ER 13:00 → 4E 19:30 → EROBS 19:30 → 4E 20:15
PROVIDERS: Internal Medicine; Nurse Practitioner Acute Care; Physician Assistant
DX: A41.9 Sepsis, unspecified organism (principal); E43 Unspecified severe protein-calorie malnutrition; L89.224 Pressure ulcer of left hip, stage 4; L89.214 Pressure ulcer of right hip, stage 4; G82.50 Quadriplegia, unspecified; N39.0 Urinary tract infection, site not specified; Z68.44 Body mass index [BMI] 60.0-69.9, adult; G82.20 Paraplegia, unspecified; E87.1 Hypo-osmolality and hyponatremia; L98.419 Non-pressure chronic ulcer of buttock with unspecified severity; L98.429 Non-pressure chronic ulcer of back with unspecified severity; K21.9 Gastro-esophageal reflux disease without esophagitis; F31.9 Bipolar disorder, unspecified; E86.0 Dehydration; D64.9 Anemia, unspecified; F17.210 Nicotine dependence, cigarettes, uncomplicated; R68.81 Early satiety; R53.81 Other malaise; E87.6 Hypokalemia; B96.4 Proteus (mirabilis) (morganii) as the cause of diseases classified elsewhere; E83.42 Hypomagnesemia; B96.5 Pseudomonas (aeruginosa) (mallei) (pseudomallei) as the cause of diseases classified elsewhere; K27.9 Peptic ulcer, site unspecified, unspecified as acute or chronic, without hemorrhage or perforation; N31.9 Neuromuscular dysfunction of bladder, unspecified; Z89.612 Acquired absence of left leg above knee; Z89.611 Acquired absence of right leg above knee; Z93.3 Colostomy status; Z86.14 Personal history of Methicillin resistant Staphylococcus aureus infection; Z88.1 Allergy status to other antibiotic agents; Z88.8 Allergy status to other drugs, medicaments and biological substances; Z89.512 Acquired absence of left leg below knee
CPT/HCPCS: 10183; 62110; 62900; 70005

== ENCOUNTER → 2017-02-11 | Outpatient (CLI) | payer OTHER ==
[~2017-02-11] MED LIST changes: +CEFUROXIME500 MG PO; +CLOTRIMAZOLE10 MG PO; +EPIPEN 2-P0.3 MG/0.3 IM; +ERYTHROMYCIN250 MG PO; +HYDROCODON-ACE1 EAC7 PO; +HYDROCODONE-APA1 TA1 PO; +MACROBID 100 M100 M1 PO; +MEGACE ES625 MG/5 M PO; +NYSTATIN 1100000 U/M SW&SWALLOW; +PHENERGAN 25 MG25 M1 PO
== END ==
LOC: HYPER 01-14 15:20
DX: L89.154 Pressure ulcer of sacral region, stage 4 (principal); L89.324 Pressure ulcer of left buttock, stage 4; L89.314 Pressure ulcer of right buttock, stage 4; L89.893 Pressure ulcer of other site, stage 3; K21.9 Gastro-esophageal reflux disease without esophagitis; I10 Essential (primary) hypertension; M86.9 Osteomyelitis, unspecified; G82.20 Paraplegia, unspecified; F17.200 Nicotine dependence, unspecified, uncomplicated; F31.9 Bipolar disorder, unspecified; Z89.612 Acquired absence of left leg above knee; Z89.611 Acquired absence of right leg above knee

== ENCOUNTER 2017-03-02 15:00 | Inpatient (IN) | payer OTHER ==
[~2017-03-02] VITALS: Ht 91.4 cm; Wt 51.3 kg
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
--- NOTE | ~2017-03-02 | HC ---
[facility] [place] [address] CONSULTATION Name: VARSHA AUGUSTIN Room #: 424-P [facility] IN .R.#: [id number] Admission: 03/02/17 Attend Phys: Jhonatan Tariq MD Discharge: Date of : 62 Report #: [id number] THIS REPORT FOR: //name// CC: Rudy Tariq DATE OF SERVICE: 03/04/2017 DATE OF EVALUATION: 03/04/2017. CHIEF COMPLAINT: Pelvic pressure ulcerations. HISTORY OF PRESENT ILLNESS: The patient is a 56-year-old white male patient who has been admitted through the emergency department with abdominal cramps, weakness, nausea and decreased appetite. He has had chronic ulcerations to the posterior pelvic region and is paraplegic with bilateral above-knee amputations. I have been asked to see him with regard to wound care. The patient states his wounds are relatively unchanged. He denies any pain associated with that but notes the significant abdominal discomfort. PAST MEDICAL HISTORY: Positive for history of bipolar type 1, chronic abdominal pain, sacral and gluteal initial pressure ulcerations with multiple prior surgeries, history of gastroesophageal reflux disease, hypertension, hyponatremia, history of osteomyelitis, paraplegia, urinary tract infections. The patient has had previous diverting colostomy. ALLERGIES: ZITHROMAX, PETROLATUM JELLY, ZOSYN. MEDICATIONS: Include ceftriaxone, pantoprazole, clotrimazole, ondansetron, dicyclomine, metoclopramide, hydrocodone. FAMILY HISTORY: Noncontributory. SOCIAL HISTORY: Positive for use of cigarettes. REVIEW OF SYSTEMS: CONSTITUTIONAL: The patient denies fever, chills or weight loss. NEUROLOGICAL: The patient is paraplegic. He denies any new focal weakness, numbness, tingling. EYES: The patient denies visual changes, redness or drainage. ENT: The patient denies earache, nasal drainage, sore throat. CARDIOVASCULAR: The patient denies chest pain, palpitations, diaphoresis. PULMONARY: The patient denies cough or shortness of breath. GASTROINTESTINAL: He does complain of abdominal discomfort, nausea and diminished appetite. ORTHOPEDIC: The patient is aware of the pressure ulceration, does not know that [address] [address] CONSULTATION Name: VARSHA AUGUSTIN Room #: 424-P [facility] IN ..#: [id number] Admission: 03/02/17 Attend Phys: Jhonatan Tariq MD Discharge: Date of : 62 Report #: [id number] there have been any recent changes. Other systems in a 12-point review of systems are negative. PHYSICAL EXAMINATION: GENERAL: This is a chronically ill-appearing male patient who appears to be in no distress. VITAL SIGNS: Include pulse rate of 79, respiratory rate of 18, blood pressure 92/53, temperature 98.1. HEENT: Normocephalic. Nose and throat clear. NECK: Supple. LUNGS: Clear. ABDOMEN: Soft. There is really no significant tenderness to palpation. Colostomy is in place, seems to be functioning well. EXTREMITIES: Above-knee amputations versus hemipelvectomy. Anatomy is distorted. He has a stage IV pressure ulcerations across the gluteal, sacral and ischial region. Once again, anatomy is quite distorted. It is difficult to identify specific landmarks. Most of these areas are relatively clean and granulating small edge of epithelialization. All these are quite large. CLINICAL IMPRESSION: Stage IV pressure ulcerations to the pelvic region, please see physical exam above. LABORATORY DATA: Sodium 136, potassium 4.1, chloride 102, CO2 of 25, BUN 18, creatinine 1.2, glucose of 82, amylase 17, lipase of 71, alkaline phosphatase 233, SGPT is 7. White blood cell count is 11.4; hemoglobin 8.0; hematocrit of 26.0; and platelet count 708,000. RECOMMENDATIONS: At this point in time, the patient will need to be turned and repositioned every 2 hours. He will need ongoing nutritional support while he is being evaluated for his abdominal pain. We will recommend a quarter strength Dakin's moist gauze dressings across the sacral gluteal ischial region to be changed daily and as needed for soiling or displacement or saturation. The patient is agreeable to this plan. I appreciate being asked to see him in consultation. <ELECTRONICALLY SIGNED> By: Mack Sawyer MD 03/05/17 0911 [id number] [id number] Mack Sawyer MD /nt
[2017-03-02 15:06] VITALS: BP 85/62
[2017-03-02] MEDS ORDERED: OMEPRAZOLE10 MG PO (16:08)
[2017-03-02 16:09] LABS: URINE BILIRUBIN 1+ (Negative); URINE BLOOD NEGATIVE (Negative); URINE COLOR YELLOW; URINE GLUCOSE-RANDOM* NEGATIVE (Negative); URINE KETONES NEGATIVE (Negative); URINE LEUKOCYTES-REFLEX 2+ (Negative); URINE PROTEIN (DIPSTICK) 2+ (Negative); URINE SPECIFIC GRAVITY 1.015 (1.003-1.035)
[2017-03-02] MEDS ORDERED: ONDANSETRON HCL4 M2 PO (16:09)
[2017-03-02] MEDS ORDERED: HYDROCODONE-AP1 EAC6 PO (16:09)
[2017-03-02 16:15] LABS: ICTOTEST (BILI CONFIRMATORY) Negative (Negative)
[2017-03-02 16:22] LABS: AMORPHOUS URATES Few /LPF (None Seen); CALCIUM OXALATE >10 Many /LPF (None Seen); CASTS None Seen /LPF (None Seen); SQUAMOUS 0-3 Few /LPF (0-3); URINE RBC None Seen /HPF (0-2); URINE WBC-REFLEX 6-15 Few /HPF (0-5)
[2017-03-02 17:41] LABS: ABSOLUTE NEUTROPHILS 8.4 thou/uL (1.4-8.2); BASOPHILS 0.7 % (0.0-2.0); EOSINOPHILS 1.6 % (0.0-3.0); MCH 23.2 pg (26.0-34.0); MCHC 30.9 g/dL (28.0-37.0); MONOCYTES 7.3 % (1.0-8.0); PLATELET COUNT 708 thou/uL (150-400); POLYS 73.4 % (36.0-66.0); RBC 3.46 mil/uL (4.50-6.00); RDW 18.6 % (10.5-14.5); WBC 11.4 thou/uL (4.0-11.0)
[2017-03-02 17:43] LABS: MANUAL DIFF NO
[2017-03-02 17:50] LABS: CALCIUM 8.6 mg/dL (8.5-10.1); CREATININE 1.2 mg/dL (0.7-1.3); POTASSIUM 4.1 mmol/L (3.5-5.1)
[2017-03-02 17:57] LABS: ALBUMIN 1.7 g/dL (3.4-5.0); TOTAL BILIRUBIN 0.2 mg/dL (<0.1-1.0); TOTAL PROTEIN 7.5 g/dL (6.4-8.2)
[2017-03-02 18:37] VITALS: BP 94/61
[2017-03-02 19:03] VITALS: BP 91/63
[2017-03-02 19:30] VITALS: BP 88/59
[2017-03-02] MEDS ORDERED: CLOTRIMAZOLE10 MG MM (19:46)
[2017-03-02] MEDS ORDERED: NORCO 10-325 T1 EACH PO (19:47)
[2017-03-02] MEDS ORDERED: ZOFRAN ODT4 MG PO (19:49)
[2017-03-03 04:26] VITALS: BP 81/49
[2017-03-03 08:38] VITALS: BP 76/46
[2017-03-03 17:09] VITALS: BP 86/59
[2017-03-03 20:00] VITALS: BP 84/50
[2017-03-04 04:00] VITALS: BP 89/52
[2017-03-04 08:00] VITALS: BP 96/59
[2017-03-04 16:00] VITALS: BP 92/53
[2017-03-04 20:25] VITALS: BP 85/52
[2017-03-05 03:46] VITALS: BP 94/61
[2017-03-05 06:33] LABS: HEMATOCRIT 20.9 % (42.0-52.0); HEMOGLOBIN 6.6 gm/dL (14.0-18.0); MCH 23.8 pg (26.0-34.0); MCHC 31.4 g/dL (28.0-37.0); RBC 2.75 mil/uL (4.50-6.00)
[2017-03-05 06:35] LABS: MCV 75.9 fL (80.0-100.0); RDW 17.9 % (10.5-14.5); WBC 6.7 thou/uL (4.0-11.0)
[2017-03-05 06:52] LABS: CALCIUM 7.8 mg/dL (8.5-10.1); CREATININE 0.6 mg/dL (0.7-1.3)
[2017-03-05 06:57] LABS: POTASSIUM 2.8 mmol/L (3.5-5.1)
[2017-03-05 08:00] VITALS: BP 92/59
[2017-03-05 16:07] VITALS: BP 92/58
[2017-03-05 19:46] VITALS: BP 108/64
[2017-03-06 03:42] VITALS: BP 99/70
[2017-03-06 05:57] LABS: HEMATOCRIT 20.6 % (42.0-52.0); HEMOGLOBIN 6.5 gm/dL (14.0-18.0)
[2017-03-06 06:11] LABS: POTASSIUM 3.6 mmol/L (3.5-5.1)
[2017-03-06 08:15] VITALS: BP 101/73
[2017-03-06 09:13] LABS: % SATURATION 14 % (20-39); IRON 12 ug/dL (65-175); TIBC 87 ug/dL (250-450); UIBC 75 ug/dL
[2017-03-06 09:41] LABS: FOLIC ACID 5.3 ng/mL (8.6-58.9)
[2017-03-06 11:54] VITALS: BP 105/70; BP 110/77
[2017-03-06 15:09] VITALS: BP 101/73
[2017-03-06 16:10] VITALS: BP 110/77
[2017-03-06 20:00] VITALS: BP 110/75
[2017-03-07 04:30] VITALS: BP 113/68
[2017-03-07 07:54] VITALS: BP 101/69
[2017-03-07] MEDS ORDERED: NORCO 10-325 T1 EACH PO (10:03)
[2017-03-07] MEDS ORDERED: REGLAN 10 MG TA10 MG PO (10:03)
[2017-03-07 11:32] LABS: HEMATOCRIT 23.2 % (42.0-52.0); HEMOGLOBIN 7.3 gm/dL (14.0-18.0)
== END 2017-03-07 16:35 | disposition home health service (06) | DRG 391 ==
LOC: ER 15:00 → 4E 17:55 → EROBS 17:55 → 4E 19:11
PROVIDERS: Family Medicine; Internal Medicine Gastroenterology; Physician Assistant
PROC: 30233N1 Transfusion of Nonautologous Red Blood Cells into Peripheral Vein, Percutaneous Approach (ICD-10-PCS; principal; 2017-03-06)
DX: K31.84 Gastroparesis (principal); L89.154 Pressure ulcer of sacral region, stage 4; E43 Unspecified severe protein-calorie malnutrition; L89.324 Pressure ulcer of left buttock, stage 4; L89.314 Pressure ulcer of right buttock, stage 4; L89.224 Pressure ulcer of left hip, stage 4; L89.214 Pressure ulcer of right hip, stage 4; N39.0 Urinary tract infection, site not specified; G82.20 Paraplegia, unspecified; Z68.44 Body mass index [BMI] 60.0-69.9, adult; K21.9 Gastro-esophageal reflux disease without esophagitis; F31.9 Bipolar disorder, unspecified; F17.210 Nicotine dependence, cigarettes, uncomplicated; D64.9 Anemia, unspecified; G89.29 Other chronic pain; Z93.3 Colostomy status; Z88.1 Allergy status to other antibiotic agents; Z88.8 Allergy status to other drugs, medicaments and biological substances; Z89.612 Acquired absence of left leg above knee; Z89.611 Acquired absence of right leg above knee
CPT/HCPCS: 10084

== ENCOUNTER → 2017-03-11 | Outpatient (CLI) | payer OTHER ==
[~2017-03-11] MED LIST changes: +CLOTRIMAZOLE10 MG MM; +NORCO 10-325 T1 EACH PO; +OMEPRAZOLE10 MG PO; +ONDANSETRON HCL4 M2 PO; +REGLAN 10 MG TA10 MG PO; +ZOFRAN ODT4 MG PO
== END ==
LOC: HYPER 06:54
DX: L89.324 Pressure ulcer of left buttock, stage 4 (principal); L89.314 Pressure ulcer of right buttock, stage 4; L89.143 Pressure ulcer of left lower back, stage 3; L89.154 Pressure ulcer of sacral region, stage 4; F31.9 Bipolar disorder, unspecified; K21.9 Gastro-esophageal reflux disease without esophagitis; I10 Essential (primary) hypertension; G82.20 Paraplegia, unspecified; M86.8X8 Other osteomyelitis, other site; F17.200 Nicotine dependence, unspecified, uncomplicated; Z89.612 Acquired absence of left leg above knee; Z89.611 Acquired absence of right leg above knee

== ENCOUNTER 2017-03-20 12:40 | Emergency (ER) | payer OTHER ==
[~2017-03-20] VITALS: Ht 91.4 cm; Wt 52.2 kg
[2017-03-20] MEDS ORDERED: DOMPERIDONE PO (14:39)
== END 2017-03-20 18:22 | disposition home or self-care (01) ==
LOC: ER 12:40
DX: R10.30 Lower abdominal pain, unspecified (principal); F31.9 Bipolar disorder, unspecified; K21.9 Gastro-esophageal reflux disease without esophagitis; F17.210 Nicotine dependence, cigarettes, uncomplicated; Z98.890 Other specified postprocedural states; Z79.891 Long term (current) use of opiate analgesic; Z88.1 Allergy status to other antibiotic agents; Z88.8 Allergy status to other drugs, medicaments and biological substances

== ENCOUNTER → 2017-04-27 | Outpatient (CLI) | payer OTHER ==
[~2017-04-27] MED LIST changes: +DOMPERIDONE PO
== END ==
LOC: HYPER 04-06 06:41
DX: L89.324 Pressure ulcer of left buttock, stage 4 (principal); L89.314 Pressure ulcer of right buttock, stage 4; L89.143 Pressure ulcer of left lower back, stage 3; K21.9 Gastro-esophageal reflux disease without esophagitis; I10 Essential (primary) hypertension; M86.9 Osteomyelitis, unspecified; G82.20 Paraplegia, unspecified; F31.9 Bipolar disorder, unspecified; F17.200 Nicotine dependence, unspecified, uncomplicated; Z89.612 Acquired absence of left leg above knee; Z89.611 Acquired absence of right leg above knee

== ENCOUNTER → 2017-06-22 | Outpatient (CLI) | payer OTHER | LOC: HYPER 05-25 11:47 | DX: L89.154 Pressure ulcer of sacral region, stage 4 (principal); L89.324 Pressure ulcer of left buttock, stage 4; L89.314 Pressure ulcer of right buttock, stage 4; L89.220 Pressure ulcer of left hip, unstageable; L89.143 Pressure ulcer of left lower back, stage 3; G82.21 Paraplegia, complete; K21.9 Gastro-esophageal reflux disease without esophagitis; I10 Essential (primary) hypertension; M86.9 Osteomyelitis, unspecified; F17.200 Nicotine dependence, unspecified, uncomplicated; F31.9 Bipolar disorder, unspecified; Z89.612 Acquired absence of left leg above knee; Z89.611 Acquired absence of right leg above knee ==

== ENCOUNTER 2017-07-02 16:05 | Inpatient (IN) | payer OTHER ==
[~2017-07-02] VITALS: Ht 104.1 cm; Wt 49.4 kg
[2017-07-02] VITALS (17 sets, daily range): BP systolic 67–142; BP diastolic 29–127
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
--- NOTE | ~2017-07-02 | EKG ---
[address] [place] [address] ELECTROCARDIOGRAM REPORT Name: VARSHA AUGUSTIN Room #: 237-P ADM IN M.R.#: [id number] Admission: 07/02/17 Attend Phys: Skyler Leija MD Discharge: Date of : 62 Report #: [id number] THIS REPORT FOR: //name// [facility] ED Test Date: 2017-07-02 Test Time: 18:02:39 Pat Name: VARSHA MUNOZN Department: Room: 237 Gender: M Shellfish Sorter: [id number] : 1960 Requested By: Varsha Narvaez Order Number: [id number] MD: Ethan Harkins Measurements Intervals [place] Rate: 111 P: 67 CO: 172 QRS: 217 QRSD: 101 T: QT: 376 QTc: 511 Interpretive Statements Sinus tachycardia Low voltage, extremity and precordial leads Nonspecific T abnormalities, lateral leads Baseline wander in lead(s) V3 Compared to ECG 01/14/2017 12:30:19 T-wave abnormality now present ST (T wave) deviation no longer present Electronically Signed On 07-02-2017 21:22:15 [employer] by Ethan Harkins [email or web address] <ELECTRONICALLY SIGNED> By: Ethan Harkins MD 07/02/172121 01 01 Ethan Harkins MD /EPI
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
[2017-07-02 16:34] LABS: HEMATOCRIT 25.2 % (42.0-52.0); MANUAL DIFF YES; MCH 29.6 pg (26.0-34.0); MCHC 31.7 g/dL (28.0-37.0); MCV 93.3 fL (80.0-100.0); PLATELET COUNT 552 thou/uL (150-400); RDW 20.1 % (10.5-14.5); WBC 27.3 thou/uL (4.0-11.0)
[2017-07-02 16:41] LABS: ABG SAMPLE TYPE ARTERIAL; BE(vivo) -9.8 mmol/L (-2 to +3); HCO3 13.3 mmol/L (22.0-26.0); LACTATE 2.65 mmol/L (0.5-2.0); O2(CT) 10.6 mL/dL (15.0-23.0); O2Hb 96.3 % (92.0-98.0); PCO2 20.5 mmHg (35.0-45.0); PO2 103.6 mmHg (80.0-100.0); STICK SITE R.RADIAL; pH 7.429 (7.360-7.450); tCO2 13.9 mmol/L (24.0-30.0)
[2017-07-02 16:42] LABS: CALCIUM 7.2 mg/dL (8.5-10.1); CREATININE 2.5 mg/dL (0.7-1.3)
[2017-07-02 16:49] LABS: POTASSIUM 6.6 mmol/L (3.5-5.1)
[2017-07-02 16:57] LABS: ABSOLUTE NEUTROPHILS 23.8 thou/uL (1.4-8.2); TOTAL CELL COUNT 100
[2017-07-02 16:58] LABS: ANISOCYTOSIS 1+
[2017-07-02] MEDS ORDERED: DILAUDID1 MG/1 ML IV PUSH (18:56)
[2017-07-02] MEDS ORDERED: AUGMENTIN200 MG/51 PO (18:57)
[2017-07-02] MEDS ORDERED: ERGOCALCIF50000 UNIT PO (18:58)
[2017-07-02] MEDS ORDERED: IBUPROFEN 600600 M1 PO (18:58)
[2017-07-02 19:37] LABS: APTT 39.9 Seconds (24.5-32.8); INR 1.9; PROTIME 19.5 Seconds (9.3-11.4)
[2017-07-02 19:57] LABS: ANION GAP 17 mmol/L (7-16); BUN 21 mg/dL (7-18); CALCIUM 6.6 mg/dL (8.5-10.1); CHLORIDE 107 mmol/L (98-107); CREATININE 2.3 mg/dL (0.7-1.3); GLUCOSE 103 mg/dL (74-106); SODIUM 132 mmol/L (136-145)
[2017-07-02 20:03] LABS: ALKALINE PHOSPHATASE 386 U/L (46-116); SGOT 40 U/L (15-37); SGPT 30 U/L (30-65); TOTAL BILIRUBIN 0.2 mg/dL (<0.1-1.0); TOTAL PROTEIN 3.7 g/dL (6.4-8.2)
[2017-07-02 20:05] LABS: CO2 8 mmol/L (21-32); POTASSIUM 5.6 mmol/L (3.5-5.1)
[2017-07-02 20:10] LABS: ALBUMIN < 0.6 g/dL (3.4-5.0)
[2017-07-02 22:55] LABS: HEMOGLOBIN 7.6 gm/dL (14.0-18.0); MCH 29.6 pg (26.0-34.0); MCHC 30.5 g/dL (28.0-37.0); RBC 2.58 mil/uL (4.50-6.00); RDW 20.3 % (10.5-14.5); WBC 33.6 thou/uL (4.0-11.0)
[2017-07-02 23:04] LABS: CALCIUM 6.5 mg/dL (8.5-10.1); CREATININE 2.3 mg/dL (0.7-1.3); POTASSIUM 5.1 mmol/L (3.5-5.1)
[2017-07-02 23:11] LABS: APTT 48.5 Seconds (24.5-32.8); INR 2.2; PROTIME 22.6 Seconds (9.3-11.4)
[2017-07-03] VITALS (75 sets, daily range): BP systolic 46–124; BP diastolic 12–100
[2017-07-03 00:01] LABS: URINE BILIRUBIN NEGATIVE (Negative); URINE BLOOD 3+ (Negative); URINE COLOR YELLOW; URINE GLUCOSE-RANDOM* NEGATIVE (Negative); URINE KETONES NEGATIVE (Negative); URINE PROTEIN (DIPSTICK) NEGATIVE (Negative); URINE UROBILINOGEN 0.2 E.U./dl (0.2-1.0)
[2017-07-03 00:03] LABS: URINE LEUKOCYTES-REFLEX 3+ (Negative)
[2017-07-03 00:35] LABS: HYALINE CASTS 0-3 Few /LPF (None Seen); SQUAMOUS 4-10 Moderate /LPF (0-3)
[2017-07-03 00:37] LABS: URINE WBC-REFLEX >25 Many /HPF (0-5); YEAST-REFLEX Present (None Seen)
[2017-07-03 00:38] LABS: AMORPHOUS URATES Moderate /LPF (None Seen); URINE RBC 3-10 Few /HPF (0-2)
[2017-07-03 03:59] LABS: ALBUMIN < 0.6 g/dL (3.4-5.0); ALKALINE PHOSPHATASE 362 U/L (46-116); ANION GAP 17 mmol/L (7-16); BUN 19 mg/dL (7-18); CALCIUM 6.5 mg/dL (8.5-10.1); CHLORIDE 108 mmol/L (98-107); CREATININE 2.1 mg/dL (0.7-1.3); GLUCOSE 146 mg/dL (74-106); POTASSIUM 4.5 mmol/L (3.5-5.1); SGOT 47 U/L (15-37); SGPT 29 U/L (30-65); SODIUM 134 mmol/L (136-145); TOTAL BILIRUBIN 0.2 mg/dL (<0.1-1.0); TOTAL PROTEIN 3.5 g/dL (6.4-8.2)
[2017-07-03 04:07] LABS: CO2 9 mmol/L (21-32)
[2017-07-03 06:52] LABS: HEMATOCRIT 25.9 % (42.0-52.0); HEMOGLOBIN 7.8 gm/dL (14.0-18.0); MCH 29.6 pg (26.0-34.0); MCV 98.7 fL (80.0-100.0); PLATELET COUNT 836 thou/uL (150-400); RBC 2.62 mil/uL (4.50-6.00); RDW 20.1 % (10.5-14.5); WBC 35.2 thou/uL (4.0-11.0)
[2017-07-03 06:54] LABS: MANUAL DIFF YES
[2017-07-03 07:03] LABS: CALCIUM 6.5 mg/dL (8.5-10.1); POTASSIUM 4.9 mmol/L (3.5-5.1)
[2017-07-03 08:39] LABS: ABSOLUTE NEUTROPHILS 33.1 thou/uL (1.4-8.2); TOTAL CELL COUNT 100
[2017-07-03 08:40] LABS: ANISOCYTOSIS 2+; POLYCHROMASIA SLIGHT
[2017-07-04] VITALS (19 sets, daily range): BP systolic 48–87; BP diastolic 29–73
== END 2017-07-04 05:00 | DRG 871 ==
LOC: ER 16:05 → ICU 18:26 → EROBS 18:26 → ICU 19:37
PROVIDERS: Emergency Medicine; Internal Medicine
DX: A41.9 Sepsis, unspecified organism (principal); R65.21 Severe sepsis with septic shock; L89.154 Pressure ulcer of sacral region, stage 4; N17.9 Acute kidney failure, unspecified; E87.1 Hypo-osmolality and hyponatremia; M86.9 Osteomyelitis, unspecified; M86.60 Other chronic osteomyelitis, unspecified site; Z51.5 Encounter for palliative care; E16.2 Hypoglycemia, unspecified; K21.9 Gastro-esophageal reflux disease without esophagitis; F31.9 Bipolar disorder, unspecified; D64.9 Anemia, unspecified; E87.5 Hyperkalemia; Z66 Do not resuscitate; F17.210 Nicotine dependence, cigarettes, uncomplicated; Z88.1 Allergy status to other antibiotic agents; Z88.8 Allergy status to other drugs, medicaments and biological substances; Z79.1 Long term (current) use of non-steroidal anti-inflammatories (NSAID); Z87.828 Personal history of other (healed) physical injury and trauma; Z79.899 Other long term (current) drug therapy
CPT/HCPCS: 10078; 27001